=== PATIENT | female | born 1945 | race Caucasian/White ===

== ENCOUNTER 2018-11-28 14:51 | Inpatient (IN) | payer MEDICARE, MEDICAID ==
[~2018-11-28] VITALS: Ht 152.4 cm; Wt 40.1 kg
[~2018-11-28 14:51] MED LIST: BACITAB PO; FLUO20CA8 PO; GEOD60CA PO; MIRA3350 PO; MOM30SS PO; PANT40TA3 PO; PERCOCET PO; PROZ20CA11 PO; SENO8.6T5 PO; SIMV20TA2 PO; TRAZ-163 PO; XARE10TA PO; XARE15TA PO; ZIPR60CA11 PO; desyrel PO
--- NOTE | 2018-11-28 15:11 | HPEPDOC ---
[facility] Medical History & Physical Date of Admission November 28, 2018 History and Physical Vascular Surgery Dr Mena. PCP Yumiko Redding NP. CC: LLE hematoma. HPI: 73yoF with a past medical history significant for chronic venous insufficiency who returns today for FU of LLE hematoma s/p mechanical fall approximately 2 weeks ago and her walker had fallen on top of her. The pt was seen in the office by Dr Mena 11/23/18 and returns today for a FU appt. The pt reports some bleeding from the hematoma, size has been unchanged, some of thin overlying skin has turned dark in color. Some of the overlying skin on the hematoma was noted to be necrotic in the office today, therefore the pt is being admitted for hematoma evacuation and wound debridement in AM. Pt states she had a milkshake at noon today. Denies any fevers, chills, weakness, fatigue, REN, CP, SOB, cough, palpitations, abdominal pain, N/V/D or changes in bowel or bladder habits. PMHx: chronic venous insufficiency unsteady gait. Walker HTN depression anxiety Bipolar disorder GERD HLD H/O PE 2012/ S/P IVC filter, on AC-Xarelto PSHX: cholecystectomy Rt hip fracture/ORIF 2013. SOCHX: Tobacco use: denies ETOH: denies Illicit Drugs: Denies FAMHX: DM, oral Ca ROS: As noted in HPI, otherwise 11pt ROS of systems reviewed and unremarkable. PE: GEN: 73yoF, appears stated age. No acute distress. Alert and oriented x 3. HEENT: Normocephalic, atraumatic. No facial asymmetry. Moist mucous membranes. CHEST: Regular rate and rhythm, +S1, +S2 LUNGS: Clear to auscultation bilaterally. No wheezes, rales, or rhonchi. Breathing appears symmetric and easy. ABD: Round, soft, non-tender, non-distended. +Bowel sounds throughout. No rebound or guarding. EXT: Chronic venous stasis changes B/L, Approximate 5-6 cm diameter hematoma is noted LLE with some bloody drainage, some of the overlying skin appears dark and necrotic. NEURO: Alert and oriented x 3. No focal deficits appreciated. A&P: 73yoF with a past medical history significant for chronic venous insufficiency who returns today for FU of LLE hematoma s/p mechanical fall approximately 2 weeks ago and her walker had fallen on top of her. The pt was seen in the office by Dr Mena 11/23/18 and returns today for a FU appt. The pt reports some bleeding from the hematoma, size dubose been unchanged, some of thin overlying skin has turned dark in color. Some of the overlying skin on the hematoma was noted to be necrotic in the office today, therefore the pt is being admitted for hematoma evacuation and wound debridement in AM. 1. LLE hematoma/Wound LLE IV Zosyn Q6hr. Admission labs pending. Plan for admission for hematoma evacuation and wound debridement as per Dr Mena 11/29/18. Pt is in agreement. Admission arranged. 2. Chronic venous stasis changes. Complicates care and wound healing. 3. H/O PE/IVC Filter 2012. Pt is on Xarelto Xarelto will be continued. 4. Mechanical fall. pt uses walker, Fall precautions. 5. HLD. Continue statin. 6. Bipolar disorder. Continue outpt regimen. 7. HTN. Continue outpt regimen. 8. GERD. PPI. DVT prophylaxis. Pt is on Xarelto. MED REC PENDING at this time. Vital Signs Admission VS pending. Laboratory Data Labs 24H admission labs pending. Home Medications Scheduled Fluoxetine HCl (Prozac) 20 Mg Cap, 20 MG PO DAILY Furosemide (Furosemide) 40 Mg Tablet, 40 MG PO BID Pantoprazole Sodium (Pantoprazole Sodium) 40 Mg Tab, 40 MG PO DAILY Pravastatin Sodium (Pravastatin Sodium) 40 Mg Tablet, 40 MG PO QHS Rivaroxaban (Xarelto) 15 Mg Tablet, 15 MG PO DAILY WHEN PATIENT HURT HER LEG ABOUT 1 WEEK AGO, HER DOCTOR TOLD HER TO STOP TAKING XARELTO UNTIL HE DIRECTED HER TO TAKE IT AGAIN. Trazodone HCl (Trazodone HCl) 100 Mg Tab, 100 MG PO QHS Ziprasidone HCl (Geodon) 40 Mg Capsule, 40 MG PO BID Scheduled PRN Acetaminophen (Acetaminophen) 325 Mg Tablet, 650 MG PO Q6H PRN for PAIN Allergies Coded Allergies: No Known Allergies (Verified , 12/01/04) A-FIB/CHADSVASC A-FIB History Current/History of A-Fib/PAF?: No Peggy Sultana November 28, 2018 15:11
[2018-11-28] MEDS ORDERED: PIPERACILLIN/TAZOBACTAM SOD 3.375 GM in D5W MINI-BAG PLUS 50 ML IV SCH (15:15)
[2018-11-28 16:37] LABS: BASO # 0.1 10^3/uL (0.0-0.2); BASO % 0.5 % (0.0-1.0); EOS # 0.2 10^3/uL (0.0-0.50); EOS % 1.8 % (0.0-3.0); HEMOGLOBIN 13.7 g/dl (12.0-15.5); LYMPH # 1.2 10^3/uL (1.5-4.5); LYMPH % 11.2 % (24.0-44.0); MEAN CORPUSCULAR HEMOGLOBIN 26.8 pg (27.0-33.0); MEAN CORPUSCULAR HGB CONC 31.9 g/dl (32.0-36.5); MONO # 0.8 10^3/uL (0.0-0.8); MONO % 7.5 % (0.0-5.0); NEUTROPHILS # 8.5 10^3/uL (1.8-7.7); NEUTROPHILS % 78.4 % (36.0-66.0); PLATELET COUNT, AUTOMATED 321 10^3/uL (150-450); RED BLOOD COUNT 5.12 10^6/uL (4.00-5.40); WHITE BLOOD COUNT 10.9 10^3/uL (4.0-10.0)
[2018-11-28 16:55] LABS: BLOOD UREA NITROGEN 13 MG/DL (7-18); CALCIUM LEVEL 9.2 MG/DL (8.8-10.2); CARBON DIOXIDE LEVEL 27 MEQ/L (21-32); CHLORIDE LEVEL 104 MEQ/L (98-107); CREATININE FOR GFR 0.81 MG/DL (0.55-1.30); GLOMERULAR FILTRATION RATE > 60.0 (>39); GLUCOSE, FASTING 107 MG/DL (70-100); POTASSIUM SERUM 4.8 MEQ/L (3.5-5.1); SODIUM LEVEL 138 MEQ/L (136-145)
--- NOTE | 2018-11-28 18:52 | ECGEPIP ---
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
[2018-11-28] MEDS ORDERED: GEOD40CA13 PO (20:48)
[2018-11-28] MEDS ORDERED: XARE15TA PO (20:48)
[2018-11-28] MEDS ORDERED: PRAV40TA2 PO (20:49)
[2018-11-28] MEDS ORDERED: FURO40TA2 PO (20:49)
[2018-11-28] MEDS ORDERED: ACET-908 PO (20:49)
[2018-11-28 22:00] VITALS: BP 125/56
[2018-11-28] MEDS: PIPERACILLIN/TAZOBACTAM SOD 2.25 GM in D5W MINI-BAG PLUS 50 ML IV SCH (22:11)
[2018-11-29] MEDS: PIPERACILLIN/TAZOBACTAM SOD 2.25 GM in D5W MINI-BAG PLUS 50 ML IV SCH ×4 (03:18→20:11)
[2018-11-29 06:00] VITALS: BP 118/56
[2018-11-29 06:28] LABS: HEMATOCRIT 40.5 % (36.0-47.0); HEMOGLOBIN 12.6 g/dl (12.0-15.5); MEAN CORPUSCULAR HEMOGLOBIN 26.6 pg (27.0-33.0); MEAN CORPUSCULAR HGB CONC 31.1 g/dl (32.0-36.5); MEAN CORPUSCULAR VOLUME 85.6 fl (80.0-96.0); PLATELET COUNT, AUTOMATED 289 10^3/uL (150-450); RED BLOOD COUNT 4.73 10^6/uL (4.00-5.40); WHITE BLOOD COUNT 9.9 10^3/uL (4.0-10.0)
[2018-11-29 06:49] LABS: BLOOD UREA NITROGEN 10 MG/DL (7-18); CALCIUM LEVEL 8.8 MG/DL (8.8-10.2); CARBON DIOXIDE LEVEL 27 MEQ/L (21-32); CHLORIDE LEVEL 105 MEQ/L (98-107); CREATININE FOR GFR 0.73 MG/DL (0.55-1.30); GLOMERULAR FILTRATION RATE > 60.0 (>39); GLUCOSE, FASTING 101 MG/DL (70-100); SODIUM LEVEL 137 MEQ/L (136-145)
[2018-11-29] MEDS ORDERED: PROPOFOL 200 MG/20 ML VIAL As Ordered ONE (11:11)
[2018-11-29] MEDS ORDERED: MIDAZOLAM INJ 2 MG/2 ML VIAL (J2250) As Ordered ONE (11:11)
[2018-11-29] MEDS ORDERED: fentaNYL 100 MCG/2 ML INJECTION (J3010) As Ordered ONE (11:11)
[2018-11-29] MEDS ORDERED: ACETAMINOPHEN TAB 650MG DOSE (2X325MG) PO PRN (12:15)
[2018-11-29 12:30] VITALS: BP 124/57
[2018-11-29] MEDS: FUROSEMIDE 40 MG TAB PO SCH ×2 (12:39→20:12)
[2018-11-29] MEDS: PANTOPRAZOLE 40MG TAB (PROTONIX) PO SCH (12:39)
[2018-11-29] MEDS: FLUoxetine 20 MG CAP PO SCH (12:39)
[2018-11-29 13:00] VITALS: BP 112/53
[2018-11-29 14:00] VITALS: BP 124/60
[2018-11-29] MEDS: ZIPRASIDONE 20MG CAPSULE (GEODON) PO SCH ×2 (14:26→20:13)
[2018-11-29] MEDS ORDERED: RIVAROXABAN 15 MG TAB (XARELTO) PO SCH (18:00)
[2018-11-29] MEDS ORDERED: PRAVASTATIN 20 MG TAB PO SCH (21:00)
[2018-11-29 22:00] VITALS: BP 127/59
[2018-11-30] MEDS: PIPERACILLIN/TAZOBACTAM SOD 2.25 GM in D5W MINI-BAG PLUS 50 ML IV SCH ×2 (03:15→09:48)
[2018-11-30 06:00] VITALS: BP 120/56
[2018-11-30] MEDS ORDERED: AUGM875T28 PO (09:07)
--- NOTE | 2018-11-30 09:46 | DS.PDOC ---
Discharge Summary General Date of Admission November 28, 2018 at 15:27 Date of Discharge 11/30/18 Discharge Summary PROCEDURES PERFORMED DURING STAY: hematoma evacuation LLE and wound debridement as per Dr Mena 11/29/18. ADMITTING DIAGNOSES: Hematoma LLE. unsteady gait. Walker HTN depression anxiety Bipolar disorder GERD HLD H/O PE 2012/ S/P IVC filter, on AC-Xarelto DISCHARGE DIAGNOSES: hematoma LLE S/P hematoma evacuation and wound debridement. unsteady gait. Walker HTN depression anxiety Bipolar disorder GERD HLD H/O PE 2012/ S/P IVC filter, on AC-Xarelto HISTORY OF PRESENT ILLNESS: 73yoF with a past medical history significant for chronic venous insufficiency who returns today for FU of LLE hematoma s/p mechanical fall approximately 2 weeks ago and her walker had fallen on top of her. The pt denies any dizziness, weakness, presyncopal or syncopal symptoms and states she tripped and the walker fell on her leg. She denies any difficulty ambulating and the pt had walked into office appt by herself. The pt reports some bleeding from the hematoma, size has been unchanged, some of thin overlying skin has turned dark in color. Some of the overlying skin on the hematoma was noted to be necrotic in the office today, therefore the pt is being admitted for hematoma evacuation and wound debridement in AM. HOSPITAL COURSE: The pt was admitted and placed on IV Zosyn. The pt is S/P hematoma evacuation and wound debridement 11/29/[address] Mena. Plan for d/c today with wound care and referral to Dr Renee for wound management. This AM the pt states she has been up OOB to chair and ambulating in room to BR on her own with her walker. Denies any concerns. States she has family at home which will help her change her dressing. DISCHARGE MEDICATIONS: Please see below. ALLERGIES: Please see below. PHYSICAL EXAMINATION ON DISCHARGE: VITAL SIGNS: Please see below. GEN: 73yoF, appears stated age. No acute distress. Alert and oriented x 3. HEENT: Normocephalic, atraumatic. No facial asymmetry. Moist mucous membranes. CHEST: Regular rate and rhythm, +S1, +S2 LUNGS: Clear to auscultation bilaterally. No wheezes, rales, or rhonchi. Breathing appears symmetric and easy. ABD: Round, soft, non-tender, non-distended. +Bowel sounds throughout. No rebound or guarding. EXT: Chronic venous stasis changes B/L, S/P hematoma evacuation and wound debridement LLE with some bloody drainage noted on dressing when removed this AM, foam dressing applied. NEURO: Alert and oriented x 3. No focal deficits appreciated. LABORATORY DATA: Please see below. ACTIVITY: As tolerated. fall precautions. DIET: As tolerated DISCHARGE PLAN: D/C home as long as cleared per PT. Vashe cleanser daily and apply foam dressing daily. Referral to Dr Renee for contd wound care. FU with Dr Mena 1 week. Augmentin 875 mg po BID x 7 days. ITEMS TO FOLLOWUP ON ON OUTPATIENT: 1. Wound mgmt with Dr Renee. DISCHARGE CONDITION: Stable. TIME SPENT ON DISCHARGE: Greater than 30 minutes. Vital Signs/I&Os Vital Signs Date Time Temp Pulse Resp B/P (MAP) Pulse Ox O2 Delivery O2 Flow Rate FiO2 11/30/18 06:00 97.7 87 17 120/56 (77) 92 11/29/18 11:32 2 I&O- Last 24 Hours up to 6 AM 11/30/18 06:00 Intake Total 432 ml Output Total 630 ml Balance -198 ml Laboratory Data Labs 24H Item Value Date Time White Blood Count 9.9 10^3/uL 11/29/18 0603 Red Blood Count 4.73 10^6/uL 11/29/18 0603 Hemoglobin 12.6 g/dl 11/29/18 0603 Hematocrit 40.5 % 11/29/18 0603 Mean Corpuscular Volume 85.6 fl 11/29/18 0603 Mean Corpuscular Hemoglobin 26.6 pg L 11/29/18 0603 Mean Corpuscular Hemoglobin Concent 31.1 g/dl L 11/29/18 0603 Red Cell Distribution Width 13.9 % 11/29/18 0603 Platelet Count 289 10^3/uL 11/29/18 0603 Sodium Level 137 MEQ/L 11/29/18 0603 Potassium Level 4.0 MEQ/L 11/29/18 0603 Chloride Level 105 MEQ/L 11/29/18 0603 Carbon Dioxide Level 27 MEQ/L 11/29/18 0603 Anion Gap 5 MEQ/L L 11/29/18 0603 Blood Urea Nitrogen 10 MG/DL 5/14/19 0603 Creatinine 0.73 MG/DL 11/29/18602 Glomerular Filtration Rate > 60.0 11/29/18602 Fasting Glucose 101 MG/DL H 11/29/18602 Calcium Level 8.8 MG/DL 11/29/18602 Discharge Medications Scheduled Amoxicillin/Potassium Clav (Augmentin 875-125 Tablet) 1 Each Tablet, 1 TAB PO BID Fluoxetine HCl (Prozac) 20 Mg Cap, 20 MG PO DAILY, (Reported) Furosemide (Furosemide) 40 Mg Tablet, 40 MG PO BID, (Reported) Pantoprazole Sodium (Pantoprazole Sodium) 40 Mg Tab, 40 MG PO DAILY, (Reported) Pravastatin Sodium (Pravastatin Sodium) 40 Mg Tablet, 40 MG PO QHS, (Reported) Rivaroxaban (Xarelto) 15 Mg Tablet, 15 MG PO DAILY, (Reported) WHEN PATIENT HURT HER LEG ABOUT 1 WEEK AGO, HER DOCTOR TOLD HER TO STOP TAKING XARELTO UNTIL HE DIRECTED HER TO TAKE IT AGAIN. Trazodone HCl (Trazodone HCl) 100 Mg Tab, 100 MG PO QHS, (Reported) Ziprasidone HCl (Geodon) 40 Mg Capsule, 40 MG PO BID, (Reported) Scheduled PRN Acetaminophen (Acetaminophen) 325 Mg Tablet, 650 MG PO Q6H PRN for PAIN, (Reported) Allergies Coded Allergies: No Known Allergies (Verified , 12/01/04) Peggy Sultana November 30, 2018 09:46
[2018-11-30] MEDS: ZIPRASIDONE 20MG CAPSULE (GEODON) PO SCH (09:47)
[2018-11-30] MEDS: PANTOPRAZOLE 40MG TAB (PROTONIX) PO SCH (09:47)
[2018-11-30] MEDS: FLUoxetine 20 MG CAP PO SCH (09:48)
[2018-11-30] MEDS: FUROSEMIDE 40 MG TAB PO SCH (09:48)
--- NOTE | 2018-12-23 12:24 | RO ---
DATE OF PROCEDURE: 11/29/2018 PREOPERATIVE DIAGNOSIS: Left calf hematoma, left calf skin necrosis. POSTOPERATIVE DIAGNOSIS: Left calf hematoma, left calf skin necrosis. PROCEDURE: Excisional debridement of left calf necrotic skin, evacuation of hematoma and excisional debridement of nonviable subcutaneous tissue. Wound size measures 20 cm in width x 30 cm in length x 1 mm in depth. ATTENDING SURGEON: Dr. Kolton Mena CLOTH EXAMINER: None. INDICATIONS: The patient is a 73-year-old female on anticoagulation who had traumatic injury to her left calf and developed a hematoma which is now creating necrosis of the overlying skin. The patient will undergo resection of the nonviable skin and evacuation of hematoma. ANESTHESIA: MAC. ESTIMATED BLOOD LOSS: 5 mL. IV FLUIDS: 100 mL. SPECIMEN: None. COMPLICATIONS: None. DRAINS: None. IMPLANTS: None. DESCRIPTION OF PROCEDURE: The patient was taken to the operating room, placed supine on the operating room table and then prepped and draped in a standard surgical fashion. The hematoma was evacuated from the left calf after the nonviable skin was excised using a scalpel and tooth pickups. There was some nonviable subcutaneous tissue which was also sharply debrided with the wound measuring 20 cm x 30 cm x 1 mm in depth at completion of the debridement. Dressings were then applied. The patient tolerated the procedure well. All instrument, sponge and needle counts were correct at the end of the case. There were no complications. Dr. Mena was present for and directed the entire case. The patient was transferred to the recovery room in stable condition.
== END 2018-11-30 12:37 | disposition home or self-care (01) | DRG 572 ==
LOC: M MSPAV 15:27
PROVIDERS: ADMIT Surgery Vascular Surgery; ATTEND Surgery Vascular Surgery
PROC: 0JBP0ZZ Excision of Left Lower Leg Subcutaneous Tissue and Fascia, Open Approach (ICD-10-PCS; principal; 2018-11-29 15:13)
DX: S80.12XA Contusion of left lower leg, initial encounter (principal); I87.2 Venous insufficiency (chronic) (peripheral); R26.89 Other abnormalities of gait and mobility; K21.9 Gastro-esophageal reflux disease without esophagitis; F31.9 Bipolar disorder, unspecified; F41.9 Anxiety disorder, unspecified; I10 Essential (primary) hypertension; Z79.01 Long term (current) use of anticoagulants; Z79.899 Other long term (current) drug therapy; W18.30XA Fall on same level, unspecified, initial encounter; Y92.009 Unspecified place in unspecified non-institutional (private) residence as the place of occurrence of the external cause

== ENCOUNTER → 2019-02-21 | Outpatient (CLI) | payer MEDICARE, MEDICAID ==
[~2019-02-21] MED LIST changes: +ACET-908 PO; +AUGM875T28 PO; +FURO40TA2 PO; +GEOD40CA13 PO; +PRAV40TA2 PO
--- NOTE | 2019-02-21 15:29 | REP ---
BILATERAL LOWER EXTREMITY DUPLEX DOPPLER ARTERIAL ULTRASOUND: Real-time ultrasound evaluation and duplex Doppler interrogation of the bilateral lower extremity arterial systems is performed. 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 There is severe stenosis of the right common femoral artery just distal to that in the proximal right superficial femoral artery. Severe stenosis is seen of the distal left common femoral artery and profunda artery. There is occlusion of the proximal and mid left superficial femoral artery with reconstitution of the distal superficial femoral artery. Monophasic waveforms are seen diffusely bilaterally. 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 Severe stenosis distal right common femoral artery just distal to the aneurysm as well as right profunda and proximal SFA. Severe stenosis distal left common femoral artery and profunda. Occlusion proximal left SFA with reconstitution of the distal left SFA. Electronically Signed by Fernando Rocha MD 02/22/2019 10:52 A
== END ==
LOC: M RAD 12:31
PROVIDERS: ATTEND Physician Assistant
DX: I99.9 Unspecified disorder of circulatory system (principal); I87.393 Chronic venous hypertension (idiopathic) with other complications of bilateral lower extremity; I72.4 Aneurysm of artery of lower extremity

== ENCOUNTER 2019-05-17 15:04 | Inpatient (IN) | payer MEDICARE, MEDICAID ==
[~2019-05-17] VITALS: Ht 152.4 cm; Wt 43.7 kg
[2019-05-17 16:47] VITALS: BP 137/51
[2019-05-17] MEDS ORDERED: IPRATROPIUM 0.5MG/ALBUTEROL 2.5MG INH SOL UD 3ML (DUONEB)(J7620) NEB PRN (17:30)
[2019-05-17] MEDS ORDERED: MAALOX 30 ML SUSP *UDC PO PRN (17:30)
[2019-05-17] MEDS ORDERED: MOM 30ML SUSPENSION UDC PO PRN (17:30)
[2019-05-17] MEDS ORDERED: SLF 3 ML SYR IV PRN (17:45)
--- NOTE | 2019-05-17 17:48 | HPEPDOC ---
General Date of Admission May 17, 2019 at 16:48 Date of Service: May 17, 2019 Chief Complaint The patient is a 73-year-old female admitted with a reason for visit of Pneumonia. History of Present Illness 73 years old white female with past medical history of hypertension, depression, anxiety, bipolar disorder, GERD, HLD, history of PE status post IVC filter on Xarelto was admitted to [facility] with the diagnosis of pneumonia and COPD since 05/14/2019. She was treated with Zithromax and there for IV antibiotics for pneumonia, but today was transferred to [facility] for advanced care for her COPD and pneumonia. Patient is a poor historian. Offers no complaints is not sure why she is here. History was obtained from the accepting physician and from medical records brought from [facility] with patient. Home Medications Scheduled Amoxicillin/Potassium Clav (Augmentin 875-125 Tablet) 1 Each Tablet, 1 TAB PO BID Fluoxetine HCl (Prozac) 20 Mg Cap, 20 MG PO DAILY, (Reported) Furosemide (Furosemide) 40 Mg Tablet, 40 MG PO BID, (Reported) Pantoprazole Sodium (Pantoprazole Sodium) 40 Mg Tab, 40 MG PO DAILY, (Reported) Pravastatin Sodium (Pravastatin Sodium) 40 Mg Tablet, 40 MG PO QHS, (Reported) Rivaroxaban (Xarelto) 15 Mg Tablet, 15 MG PO DAILY, (Reported) WHEN PATIENT HURT HER LEG ABOUT 1 WEEK AGO, HER DOCTOR TOLD HER TO STOP TAKING XARELTO UNTIL HE DIRECTED HER TO TAKE IT AGAIN. Trazodone HCl (Trazodone HCl) 100 Mg Tab, 100 MG PO QHS, (Reported) Ziprasidone HCl (Geodon) 40 Mg Capsule, 40 MG PO BID, (Reported) Scheduled PRN Acetaminophen (Acetaminophen) 325 Mg Tablet, 650 MG PO Q6H PRN for PAIN, (Reported) Allergies Coded Allergies: No Known Allergies (Verified , 12/01/04) Past Medical History Medical History Hematoma of left lower extremity, status post evacuation and wound debridement unsteady gait, hypertension, depression, anxiety, bipolar disorder, GERD, hyperlipidemia, history of PE with IVC filter in and on anticoagulation Surgical History history of hematoma, left lower extremity, status post evacuation and wound debridement in the past History of IVC placement in the past Family History Significant Family History: No pertinent family hx Social History * Smoker: former Smoker Alcohol: Denies Drugs: denies A-FIB/CHADSVASC A-FIB History Current/History of A-Fib/PAF?: No Current PO Anticoag Therapy: Yes Review of Systems Constitutional: Denies: Chills, Fever, Malaise, Night Sweats, Weakness, Fatigue, Weight Loss, Lethargy, Other Eyes: Denies: Pain, Vision change, Conjunctivae inflammation, Eyelid inflammation, Redness, Other ENT: Denies: Head Aches, Ear Pain, Dysphagia, Sinus Congestion, Post Nasal Drip, Sore Throat, Epistaxis, Other Symptoms Pulmonary: Reports: Dyspnea Cardiovascular: Denies: Chest Pain, Palpitations, Orthopnea, Paroxysmal Noc. Dyspnea, Edema, Lt Headedness, Other Symptoms Gastrointestinal: Denies: Nausea, Vomiting, Abdominal Pain, Diarrhea, Constipation, Melena, Hematochezia, Other Symptoms Genitourinary: Denies: Dysuria, Frequency, Incontinence, Hematuria, Retention, Other Symptoms Hematologic: Denies: Bruising, Bleeding Excessively, Petecchia, Purpura, Enlarged Lymph Nodes, Other Hematologic Endocrine: Denies: Polydipsia, Polyphagia, Polyuria, Heat Intolerance, Cold Intolerance, Other Endocrine Sx Musculoskeletal: Denies: Neck Pain, Back Pain, Shoulder Pain, Arm Pain, Hand Pain, Leg Pain, Foot Pain, Joint Pain, Muscle Pain, Spasms, Other Symptoms Neurological: Denies: Weakness, Numbness, Incoordination, Change in speech, Confusion, Seizures, Other Symptoms Psych: Denies: Mood Normal, Anxiety, Depression, Memory Issues, Thoughts of Self Harm, Anger, Thoughts of Harming Other, Other Psych Physical Examination General Exam: Positive: Alert, Cooperative Eye Exam: Positive: PERRLA, Conjunctiva & lids normal ENT Exam: Positive: Atraumatic Chest Exam: Positive: Other (diminished breath sounds bilaterally with crackles and rhonchi bilaterally) Heart Exam: Positive: Rate Normal, Normal S1, Normal S2 Abdomen Exam: Positive: Normal bowel sounds, Soft Extremity Exam: Positive: Other (bipedal edema) Skin Exam: Positive: Nl turgor and temperature Neuro Exam: Positive: Strength at 5/5 X4 ext, Sensation Intact Psych Exam: Positive: Mood NL Vital Signs Vital Signs Date Time Temp Pulse Resp B/P (MAP) Pulse Ox O2 Delivery O2 Flow Rate FiO2 05/17/19 16:47 98.1 80 18 137/51 (79) 92 Venturi Mask 15.0 50 Problems (1) COPD (chronic obstructive pulmonary disease) Status: Acute Problem Text: 73 years old white lady with past medical history of GERD, hype rlipidemia, anxiety, depression, hypertension, unsteady gait, COPD, was admitted to [facility] and was diagnosed with pneumonia and COPD and was treated with Zithromax and. Patient had a CT of the chest done at [place] on 05/15, which was consistent with new moderate patchy nodular infiltrate in the right lower lobe with stable mild right upper lobe infiltrate. She also had a chest x- ray done on 05/15, which showed no significant chest right upper and lower lobe infiltrates and COPD. Patient was transferred to [facility] as they were unable to take care of patient at [facility], and is per transfer, she might require pulmonary consultation On examination, patient is comfortable, cooperative, in no respiratory or cardiac distress Will admit patient to PCU with the telemetry monitoring Start Vanco and Zosyn as broad-spectrum coverage as patient has been admitted to [facility] for a few days DuoNeb every 6 hours and every 2 hours when necessary Solu-Medrol 40 mg IV every 8 hours Oxygen supplementation to keep pulse ox more than 88% Blood gas has been ordered Chest x-ray portable has been ordered CBC, CMP pro calcitonin. BNP and troponin levels have been ordered Echocardiogram also has been ordered secondary to patient's bipedal edema Patient is already on Xarelto also DVT. No DVT prophylaxis is needed Activity as tolerated Diet 2 g sodium Of the changes and management pending patient's basic blood and radiological work (2) Pneumonia Status: Acute Problem Text: Pneumoniae, as per records from [facility] Broad-spectrum antibiotics such as Zosyn and vancomycin Oxygen supplementation Further, as per pending diagnostic workup (3) History of pulmonary embolism Status: Chronic Problem Text: Continue Xarelto , ABG has been ordered (4) Depression Status: Chronic Problem Text: Continue home meds (5) Edema Problem Text: Bipedal edema was noticed on exam Patient is on by mouth Lasix at [place] Will give one dose of Lasix 40 mg IV push Monitor intake and output Echocardiogram to assess cardiac function Plan / VTE VTE Prophylaxis Ordered?: Yes DEIDRA STEVENSON MD May 17, 2019 17:48
[2019-05-17 17:57] LABS: HEMATOCRIT 26.9 % (36.0-47.0); HEMOGLOBIN 8.4 g/dl (12.0-15.5); MEAN CORPUSCULAR HEMOGLOBIN 27.8 pg (27.0-33.0); MEAN CORPUSCULAR HGB CONC 31.2 g/dl (32.0-36.5); MEAN CORPUSCULAR VOLUME 89.1 fl (80.0-96.0); PLATELET COUNT, AUTOMATED 135 10^3/uL (150-450); RED BLOOD COUNT 3.02 10^6/uL (4.00-5.40); WHITE BLOOD COUNT 19.8 10^3/uL (4.0-10.0)
[2019-05-17] MEDS ORDERED: FUROSEMIDE 40 MG/4 ML VIAL (J1940) IV ONE ×2 (18:00→22:00)
[2019-05-17 18:13] LABS: INR 1.16; PROTHROMBIN TIME 14.5 SECONDS (11.8-14.0)
[2019-05-17 18:19] LABS: ABG pH (ARTERIAL) 7.544 UNITS (7.350-7.450)
[2019-05-17 18:20] LABS: ABG BASE EXCESS 4.9 (-2.0-2.0); ABG HCO3 27.5 MEQ/L (22.0-26.0); ABG O2 SATURATION 86.7 % (95.0-99.0); ABG PARTIAL PRESSURE CO2 32.6 mmHg (35.0-45.0); ABG PARTIAL PRESSURE O2 48.3 mmHg (75.0-100.0); ABG STANDARD HCO3 28.7 MEQ/L (22.0-26.0); ABG TOTAL CO2 28.5 MEQ/L (23.0-31.0)
[2019-05-17 18:31] LABS: ALBUMIN 1.8 GM/DL (3.2-5.2); ALT/SGPT 27 U/L (12-78); BILIRUBIN,TOTAL 0.3 MG/DL (0.2-1.0); BLOOD UREA NITROGEN 23 MG/DL (7-18); CALCIUM LEVEL 7.5 MG/DL (8.8-10.2); CARBON DIOXIDE LEVEL 30 MEQ/L (21-32); CHLORIDE LEVEL 107 MEQ/L (98-107); CREATININE FOR GFR 0.63 MG/DL (0.55-1.30); GLOMERULAR FILTRATION RATE > 60.0 (>39); GLUCOSE, FASTING 116 MG/DL (70-100); NT-PRO BNP 2012 PG/ML (<125); POTASSIUM SERUM 3.2 MEQ/L (3.5-5.1); SODIUM LEVEL 145 MEQ/L (136-145); TOTAL PROTEIN 4.5 GM/DL (6.4-8.2); TROPONIN I 0.05 NG/ML (< 0.10)
[2019-05-17] MEDS ORDERED: ISOVUE-370 76% 100ML VIAL (Q9967) As Ordered ONE (18:45)
[2019-05-17] MEDS ORDERED: DILT180C78 PO (19:13)
[2019-05-17] MEDS ORDERED: METH125VL IM (19:13)
[2019-05-17] MEDS ORDERED: BUDE0.5S6 NEB (19:13)
[2019-05-17] MEDS ORDERED: ALBU83IN INH (19:15)
[2019-05-17] MEDS ORDERED: [UNRECOGNIZED DRUG - REMARK] (19:18)
--- NOTE | 2019-05-17 19:26 | REP ---
Sitting AP chest x-ray: Single view. History: Pneumonia. Comparison chest x-ray is from March 18, 2014. Findings: There is dense consolidation in the right lower lobe and to a lesser extent, in the upper lobe distribution consistent with pneumonia. There is biapical pleuroparenchymal fibrosis. Some interstitial fibrosis is visible in the left base. There are surgical clips in the soft tissues of the neck on the left. There is old post-traumatic deformity in the proximal humerus on the right. A vena cava filter is noted at the bottom edge of the field of view in the upper abdomen. Heart is not enlarged. Impression: Extensive consolidation in the right lower lobe and right upper lobe consistent with pneumonia. Mild interstitial fibrosis pattern and biapical pleuroparenchymal fibrosis pattern. Electronically Signed by Rigoberto Adams MD 05/17/2019 07:17 P
--- NOTE | 2019-05-17 19:44 | REP ---
CT chest with IV contrast: History: Pneumonia. CT contrast dose: 75 ml of intravenous Isovue 370. Comparison chest CT study March 18, 2014. CT findings: There are scattered areas of pleural plaquing with some which show calcification consistent with previous asbestos exposure. These areas are unchanged. There are extensive areas of dense nearly confluent consolidation in the right lower lobe with smaller areas in the right middle lobe and right upper lobe consistent with pneumonia. These areas are distributed in the dependent portions of the right lung in supine patient raising question of aspiration. There is a small quantity of right pleural fluid and tiny amount of left pleural fluid is suspected. There are small areas of tree in bud opacity in the left lower lobe which may reflect early pneumonia in the left lower lobe as well. There is good opacification of the pulmonary arterial tree and there is no CT evidence of pulmonary embolus. Vascular calcification is noted. No pericardial effusion is seen. No adrenal lesion is observed. Visualized upper abdominal structures are unremarkable. The tip of patent inferior vena cava filter is seen in place at the bottom edge of the imaging field of view. Impression: Extensive pneumonia in the dependent portions of the right lung, upper, mid, and lower lobes. Question aspiration pneumonia. Tiny right pleural effusion. Question early infiltrate in the left lower lobe with peribronchovascular nodularity. Calcific pleural plaquing. Electronically Signed by Rigoberto Adams MD 05/18/2019 08:34 A
[2019-05-17] MEDS: IPRATROPIUM 0.5MG/ALBUTEROL 2.5MG INH SOL UD 3ML (DUONEB)(J7620) NEB SCH (19:46)
[2019-05-17 19:48] VITALS: O2SAT 98
[2019-05-17] MEDS: PIPERACILLIN/TAZOBACTAM SOD 3.375 GM in D5W MINI-BAG PLUS 50 ML IV SCH ×2 (19:50→23:05)
[2019-05-17] MEDS: RIVAROXABAN 15 MG TAB (XARELTO) PO SCH (19:50)
[2019-05-17 20:00] VITALS: BP 110/62
[2019-05-17] MEDS: ZIPRASIDONE 20MG CAPSULE (GEODON) PO SCH (21:02)
[2019-05-17] MEDS: methylPREDNISolone INJ 40 MG/1 ML VIAL (J2920) IV SCH (21:02)
[2019-05-17] MEDS: traZODone 100 MG TAB PO SCH (21:02)
[2019-05-17] MEDS: DOCUSATE SODIUM 100 MG CAP PO SCH (21:02)
[2019-05-17] MEDS: SLF 3 ML SYR IV SCH (21:03)
[2019-05-17] MEDS ORDERED: POTASSIUM CHLORIDE 10 MEQ SR TABLET PO ONE ×2 (22:00→23:45)
[2019-05-17 22:14] LABS: MAGNESIUM LEVEL 2.1 MG/DL (1.8-2.4)
[2019-05-17] MEDS ORDERED: MAG SULF 1GM/100ML (MAG RUN) 1 GM in IV 1 EA IV ONE (22:15)
[2019-05-17 22:30] VITALS: O2SAT 90
[2019-05-17 23:14] LABS: ABG BASE EXCESS 3.6 (-2.0-2.0); ABG HCO3 25.8 MEQ/L (22.0-26.0); ABG O2 SATURATION 87.1 % (95.0-99.0); ABG PARTIAL PRESSURE CO2 29.9 mmHg (35.0-45.0); ABG PARTIAL PRESSURE O2 50.6 mmHg (75.0-100.0); ABG STANDARD HCO3 27.5 MEQ/L (22.0-26.0); ABG TOTAL CO2 26.7 MEQ/L (23.0-31.0); ABG pH (ARTERIAL) 7.553 UNITS (7.350-7.450)
--- NOTE | 2019-05-17 23:16 | REPVR ---
PROCEDURE INFORMATION: Exam: XR Chest, 1 View Exam date and time: 05/17/2019 11:05 PM Clinical history: 73 years old, female; Condition or disease; Other: Pneumonia TECHNIQUE: Imaging protocol: XR of the chest Views: 1 view. COMPARISON: CR PORTABLE CHEST X-RAY 05/17/2019 7:08 PM FINDINGS: Lungs: Redemonstration of a right lower lobe airspace infiltrate. Remaining lungs demonstrate increased interstitial markings. Bilateral apical pleural-parenchymal scarring. Pleural space: Unremarkable. No pleural effusion. No pneumothorax. Heart/Mediastinum: Heart/Mediastinum/soft tissues: Unremarkable. No cardiomegaly. Multiple surgical clips in the left neck again demonstrated. Bones/joints: Deformity of the right shoulder consistent with a fracture, age-indeterminate. Osteoporosis. Otherwise unremarkable. IMPRESSION: Redemonstration of a right lower lobe infiltrate. Electronically signed by: Clem Berry On 05/17/2019 23:16:14 PM
[2019-05-17 23:33] LABS: BLOOD UREA NITROGEN 22 MG/DL (7-18); CALCIUM LEVEL 7.3 MG/DL (8.8-10.2); CARBON DIOXIDE LEVEL 29 MEQ/L (21-32); CHLORIDE LEVEL 102 MEQ/L (98-107); CREATININE FOR GFR 0.72 MG/DL (0.55-1.30); GLOMERULAR FILTRATION RATE > 60.0 (>39); GLUCOSE, FASTING 207 MG/DL (70-100); POTASSIUM SERUM 3.2 MEQ/L (3.5-5.1); SODIUM LEVEL 141 MEQ/L (136-145); TROPONIN I 0.06 NG/ML (< 0.10)
[2019-05-18] VITALS (17 sets, daily range): BP systolic 110–123; BP diastolic 48–70; O2SAT 84–94
[2019-05-18 00:39] LABS: HEMATOCRIT 25.3 % (36.0-47.0); MEAN CORPUSCULAR HEMOGLOBIN 27.8 pg (27.0-33.0); MEAN CORPUSCULAR HGB CONC 31.6 g/dl (32.0-36.5); MEAN CORPUSCULAR VOLUME 87.8 fl (80.0-96.0); PLATELET COUNT, AUTOMATED 122 10^3/uL (150-450); RED BLOOD COUNT 2.88 10^6/uL (4.00-5.40); WHITE BLOOD COUNT 15.8 10^3/uL (4.0-10.0)
[2019-05-18 01:02] LABS: MAGNESIUM LEVEL 1.9 MG/DL (1.8-2.4); THYROID STIMULATING HORMONE 1.16 uIU/ML (0.358-3.740)
[2019-05-18] MEDS: IPRATROPIUM 0.5MG/ALBUTEROL 2.5MG INH SOL UD 3ML (DUONEB)(J7620) NEB SCH ×4 (01:27→20:17)
[2019-05-18 03:20] LABS: ABG BASE EXCESS 3.3 (-2.0-2.0); ABG HCO3 25.5 MEQ/L (22.0-26.0); ABG O2 SATURATION 89.6 % (95.0-99.0); ABG PARTIAL PRESSURE CO2 29.2 mmHg (35.0-45.0); ABG PARTIAL PRESSURE O2 55.7 mmHg (75.0-100.0); ABG STANDARD HCO3 27.3 MEQ/L (22.0-26.0); ABG TOTAL CO2 26.4 MEQ/L (23.0-31.0); ABG pH (ARTERIAL) 7.559 UNITS (7.350-7.450)
[2019-05-18] MEDS: ACETAMINOPHEN TAB 650MG DOSE (2X325MG) PO PRN (03:38)
[2019-05-18] MEDS: methylPREDNISolone INJ 40 MG/1 ML VIAL (J2920) IV SCH ×3 (05:12→21:51)
[2019-05-18] MEDS: PIPERACILLIN/TAZOBACTAM SOD 3.375 GM in D5W MINI-BAG PLUS 50 ML IV SCH ×4 (05:12→23:36)
[2019-05-18] MEDS: SLF 3 ML SYR IV SCH ×3 (05:12→21:51)
--- NOTE | 2019-05-18 05:34 | ECHO ---
DATE OF STUDY: 05/17/2019 DATE OF : 1945 AGE: 73 REFERRING PROVIDER: Dr. Kyle Garcia REASON FOR STUDY: Congestive heart failure. 2-D MEASUREMENTS: IVS: 1.0 cm LV: 3.8 cm LVPW: 1.0 cm LA: 3.0 cm Aorta: 2.2 cm IVC: 1.5 cm DOPPLER MEASUREMENTS: Peak velocity across the aortic valve: 1.7 m/s Peak gradient across the aortic valve: 11 mmHg Mitral E: 1.2 Mitral A: 1.0 Ratio: 1.2 Maximum tricuspid valve velocity: 2.9 m/s 2-D COMMENTS: 1. Normal left ventricular size, wall thickness, and normal global left ventricular systolic ejection fraction. The estimated left ventricular systolic ejection fraction is 60-65%. 2. Normal left atrium. Normal right atrium and right ventricle. The right ventricular free wall appeared to be hypertrophic in nature. 3. The atrial septum appeared to be normal without evidence of defect or shunt. 4. Normal aortic root. 5. Trace to small pericardial effusion noted, no evidence of cardiac tamponade. Pleural effusion also noted. 6. Mildly calcified aortic valve with normal leaflet excursion. Mildly calcified mitral annulus with normal anterior mitral valve leaflet motion. Normal tricuspid valve. The pulmonic valve and proximal pulmonary artery branches were not well visualized. 7. The inferior vena cava was normal in size, central venous pressure is most likely normal. DOPPLER: Detects trace mitral regurgitation and mild tricuspid regurgitation. The calculated pulmonary artery systolic pressure varies between 40-50 mmHg. Abnormal relaxation pattern was noted across the mitral valve annulus consistent with features of grade 2 left ventricular diastolic dysfunction, left ventricular end-diastolic pressure might be elevated. IMPRESSION: 1. Normal global left ventricular systolic function. There are some features of left ventricular diastolic dysfunction, grade 2. 2. Aortic valve sclerosis with trivial aortic stenosis, but no aortic radiation. 3. Mitral annulus calcification with trace mitral regurgitation. 4. Mild tricuspid regurgitation with probably moderate pulmonary hypertension. 5. Trace to small pericardial effusion noted, no evidence of cardiac tamponade. Pleural effusion also was noted. 6. The pulmonic valve and proximal pulmonary artery branches were not well visualized. 7. The inferior vena cava was normal in size, central venous pressure might be normal.
[2019-05-18 06:09] LABS: HEMATOCRIT 23.6 % (36.0-47.0); HEMOGLOBIN 7.4 g/dl (12.0-15.5); MEAN CORPUSCULAR HEMOGLOBIN 27.2 pg (27.0-33.0); MEAN CORPUSCULAR HGB CONC 31.4 g/dl (32.0-36.5); MEAN CORPUSCULAR VOLUME 86.8 fl (80.0-96.0); PLATELET COUNT, AUTOMATED 115 10^3/uL (150-450); RED BLOOD COUNT 2.72 10^6/uL (4.00-5.40); WHITE BLOOD COUNT 13.9 10^3/uL (4.0-10.0)
[2019-05-18 06:31] LABS: ALBUMIN 1.5 GM/DL (3.2-5.2); ALT/SGPT 249 U/L (12-78); BILIRUBIN,TOTAL 0.4 MG/DL (0.2-1.0); BLOOD UREA NITROGEN 22 MG/DL (7-18); CALCIUM LEVEL 7.1 MG/DL (8.8-10.2); CARBON DIOXIDE LEVEL 28 MEQ/L (21-32); CHLORIDE LEVEL 108 MEQ/L (98-107); CREATININE FOR GFR 0.71 MG/DL (0.55-1.30); GLOMERULAR FILTRATION RATE > 60.0 (>39); GLUCOSE, FASTING 208 MG/DL (70-100); POTASSIUM SERUM 4.2 MEQ/L (3.5-5.1); SODIUM LEVEL 144 MEQ/L (136-145); TOTAL PROTEIN 4.4 GM/DL (6.4-8.2)
[2019-05-18] MEDS: FLUoxetine 20 MG CAP PO SCH (09:10)
[2019-05-18] MEDS: PRAVASTATIN 20 MG TAB PO SCH (09:10)
[2019-05-18] MEDS: ZIPRASIDONE 20MG CAPSULE (GEODON) PO SCH ×2 (09:10→21:50)
[2019-05-18] MEDS: DOCUSATE SODIUM 100 MG CAP PO SCH ×2 (09:10→21:50)
--- NOTE | 2019-05-18 10:35 | IPNPDOC ---
Subjective Date Seen The patient was seen on 05/18/19. Subjective Chief Complaint/HPI Patient sitting by the age of bed, still not feeling good with shortness of breath General: Denies: ROS Unobtainable, Chills, Night Sweats, Fatigue, Malaise, Normal Appetite, Other Symptoms Constitutional: Denies: Chills, Fever, Malaise, Night Sweats, Weakness, Fatigue, Weight Loss, Lethargy, Other Eyes: Denies: Pain, Vision change, Conjunctivae inflammation, Eyelid inflammat ion, Redness, Other ENT: Denies: Head Aches, Ear Pain, Dysphagia, Sinus Congestion, Post Nasal Drip, Sore Throat, Epistaxis, Other Symptoms Pulmonary: Reports: Dyspnea Cardiovascular: Denies: Chest Pain, Palpitations, Orthopnea, Paroxysmal Noc. Dyspnea, Edema, Lt Headedness, Other Symptoms Gastrointestinal: Denies: Nausea, Vomiting, Abdominal Pain, Diarrhea, Constipation, Melena, Hematochezia, Other Symptoms Musculoskeletal: Denies: Neck Pain, Back Pain, Shoulder Pain, Arm Pain, Hand P ain, Leg Pain, Foot Pain, Joint Pain, Muscle Pain, Spasms, Other Symptoms Neurological: Denies: Weakness, Numbness, Incoordination, Change in speech, Confusion, Seizures, Other Symptoms Objective Physical Examination General Exam: Positive: Alert, Cooperative Eye Exam: Positive: PERRLA, Conjunctiva & lids normal ENT Exam: Positive: Atraumatic Chest Exam: Positive: Other (diminished breath sounds bilaterally with crackles and rhonchi bilaterally) Heart Exam: Positive: Rate Normal, Normal S1, Normal S2 Abdomen Exam: Positive: Normal bowel sounds, Soft Extremity Exam: Positive: Other (bipedal edema) Skin Exam: Positive: Nl turgor and temperature Neuro Exam: Positive: Strength at 5/5 X4 ext, Sensation Intact Psych Exam: Positive: Mood NL Assessment /Plan Problems (1) Acute respiratory failure with hypoxemia Status: Acute Problem Text: Acute respiratory failure with hypoxia secondary to extensive right upper mid and lower lobe pneumonia And also has a extensive history of smoking with emphysematous changes on chest x-ray Patient has been started on IV antibiotics, oxygen supplement and nebulizer treatments Patient seems to be responding to verbal therapy very well and will continue the same. (2) Pneumonia Status: Acute Problem Text: Patient has extensive right upper, middle and lower lobe infiltrates Will continue IV antibiotics, Zosyn and orders Nasal PCR for MRSA has been requested. If positive, will add vancomycin Patient seems to be responding to IV Zosyn with decreasing WBC count Sputum cultures pending Continue present care (3) COPD (chronic obstructive pulmonary disease) Status: Acute Problem Text: Continue DuoNeb as per orders Continue IV Solu-Medrol 40 every 8 hours Oxygen support (4) Acute on chronic diastolic (congestive) heart failure Status: Acute Problem Text: Echocardiogram done shows: Normal left ventricular function but grade 2 diastolic failure Patient received 1 dose of Lasix 40 mg IV 1 with good response and decreased bipedal edema Will restart patient's oral Lasix Monitor I&O's (5) History of pulmonary embolism Status: Chronic Problem Text: Continue Xarelto as per orders (6) Anemia Status: Chronic Problem Text: An anemia of unknown etiology Will start iron deficiency workup Stool occult blood has been ordered Repeat CBC in a.m. , We'll transfuse if hemoglobin less than 7 Plan/VTE VTE Prophylaxis Ordered?: Yes VS, I&O, 24H, [facility] Vital Signs/I&O Vital Signs Date Time Temp Pulse Resp B/P (MAP) Pulse Ox O2 Delivery O2 Flow Rate FiO2 05/18/19 08:00 100.2 97 22 112/70 (84) 90 High Flow Cannula 8.0 05/17/19 16:47 50 I&O- Last 24 Hours up to 6 AM 05/18/19 06:00 Intake Total 650 ml Output Total 2200 ml Balance -1550 ml Laboratory Data 24H LABS Laboratory Tests 2 05/17/19 17:28: 05/17/19 17:41: Nucleated Red Blood Cells % (auto) 0.2H, Prothrombin Time 14.5H, Prothromb Time International Ratio 1.16, Anion Gap 8, Glomerular Filtration Rate > 60.0, Calcium Level 7.5L, Magnesium Level 2.1, Total Bilirubin 0.3, Aspartate Amino Transf (AST/SGOT) 13, Alanine Aminotransferase (ALT/SGPT) 27, Alkaline Phosphatase 62, Troponin I 0.05, JX-Cjh-A-Type Natriuretic Peptide 2012H, Total Protein 4.5L, Albumin 1.8L, Albumin/Globulin Ratio 0.67L 05/17/19 18:14: Blood Gas Bicarbonate Standard 28.7H, Arterial Blood pH 7.544H, Arterial Blood Partial Pressure CO2 32.6L, Arterial Blood Partial Pressure O2 48.3*L, Arterial Blood Total CO2 28.5, Arterial Blood HCO3 27.5H, Arterial Blood Base Excess 4.9H, Arterial Blood Oxygen Saturation 86.7L 05/17/19 18:24: Urine Color YELLOW, Urine Appearance CLEAR, Urine pH 5.0, Urine Specific [place] 1.009, Urine Protein 1+H, Urine Glucose (UA) 1+H, Urine Ketones NEGATIVE, Urine Blood 2+H, Urine Nitrite NEGATIVE, Urine Bilirubin NEGATIVE, Urine Urobilinogen 0.2, Urine Leukocyte Esterase NEGATIVE, Urine WBC (Auto) 1, Urine RBC (Auto) 6H, Urine Hyaline Casts (Auto) 0, Urine Bacteria (Auto) NEGATIVE, Urine Squamous Epithelial Cells 0, Urine Mucus (Auto) SMALL, Urine Sperm (Auto) 05/17/19 22:40: Anion Gap 10, Glomerular Filtration Rate > 60.0, Calcium Level 7.3L, Troponin I 0.06 05/17/19 22:59: Blood Gas Bicarbonate Standard 27.5H, Arterial Blood pH 7.553H, Arterial Blood Partial Pressure CO2 29.9L, Arterial Blood Partial Pressure O2 50.6L, Arterial Blood Total CO2 26.7, Arterial Blood HCO3 25.8, Arterial Blood Base Excess 3.6H, Arterial Blood Oxygen Saturation 87.1L 05/18/19 00:09: Nucleated Red Blood Cells % (auto) 0.1H, Magnesium Level 1.9, Thyroid Stimulating Hormone (TSH) 1.160 05/18/19 03:00: Blood Gas Bicarbonate Standard 27.3H, Arterial Blood pH 7.559H, Arterial Blood Partial Pressure CO2 29.2L, Arterial Blood Partial Pressure O2 55.7L, Arterial Blood Total CO2 26.4, Arterial Blood HCO3 25.5, Arterial Blood Base Excess 3.3H, Arterial Blood Oxygen Saturation 89.6L 05/18/19 05:38: Nucleated Red Blood Cells % (auto) 0.1H, Anion Gap 8, Glomerular Filtration Rate > 60.0, Calcium Level 7.1L, Magnesium Level 2.0, Total Bilirubin 0.4, Aspartate Amino Transf (AST/SGOT) 183H, Alanine Aminotransferase (ALT/SGPT) 249H, Alkaline Phosphatase 62, Total Protein 4.4L, Albumin 1.5L, Albumin/Globulin Ratio 0.52L 05/18/19 07:47: Methicillin-Resist S.aureus DNA PCR NOT DETECTED CBC/BMP Laboratory Tests 05/17/19 17:41 05/17/19 22:40 05/18/19 00:09 05/18/19 05:38 DEIDRA STEVENSON MD May 18, 2019 10:35
[2019-05-18] MEDS: FUROSEMIDE 40 MG TAB PO SCH (12:53)
--- NOTE | 2019-05-18 16:55 | ECGEPIP ---
[facility] Test Date: 2019-05-18 Pat Name: JUVENCIO MCCLURE Department: Room: [place] [address] Gender: Female Building Coordinator: GALO : 1945 Requested By: DIYA DAVID Order Number: [id number] Reading MD: Babak Long Measurements Intervals [place] Rate: 99 P: 94 SC: 150 QRS: 37 QRSD: 110 T: 32 QT: 414 QTc: 533 Interpretive Statements SINUS RHYTHM WITH FREQUENT SUPRAVENTRICULAR PREMATURE COMPLEXES NONSPECIFIC ST & T-WAVE ABNORMALITY ABNORMAL RHYTHM ECG Electronically Signed on 05-18-2019 16:55:04 EDT by Babak Long
[2019-05-18] MEDS: RIVAROXABAN 15 MG TAB (XARELTO) PO SCH (18:19)
[2019-05-18] MEDS: traZODone 100 MG TAB PO SCH (21:50)
[2019-05-18] MEDS ORDERED: FUROSEMIDE 40 MG/4 ML VIAL (J1940) IV ONE (22:45)
[2019-05-18 22:49] LABS: HEMATOCRIT 25.2 % (36.0-47.0)
[2019-05-19] VITALS (10 sets, daily range): BP systolic 98–125; BP diastolic 30–59; O2SAT 85–92
[2019-05-19 00:08] LABS: VENOUS BASE EXCESS 4.8 (-2.0-2.0); VENOUS HCO3 25.9 MEQ/L (23.0-27.0); VENOUS O2 SATURATION 99.3 % (60.0-80.0); VENOUS PARTIAL PRESSURE CO2 26.7 mmHg (38.0-50.0); VENOUS PH 7.605 UNITS (7.330-7.430); VENOUS STANDARD HCO3 28.8 MEQ/L; VENOUS TOTAL CO2 26.7 MEQ/L (24.0-28.0)
[2019-05-19 01:44] LABS: VENOUS BASE EXCESS 6.3 (-2.0-2.0); VENOUS HCO3 29.4 MEQ/L (23.0-27.0); VENOUS O2 SATURATION 86.6 % (60.0-80.0); VENOUS PARTIAL PRESSURE CO2 36.5 mmHg (38.0-50.0); VENOUS PARTIAL PRESSURE O2 52.7 mmHg (30.0-50.0); VENOUS PH 7.524 UNITS (7.330-7.430); VENOUS TOTAL CO2 30.5 MEQ/L (24.0-28.0)
[2019-05-19] MEDS: IPRATROPIUM 0.5MG/ALBUTEROL 2.5MG INH SOL UD 3ML (DUONEB)(J7620) NEB SCH ×3 (01:45→13:10)
[2019-05-19] MEDS: ACETAMINOPHEN TAB 650MG DOSE (2X325MG) PO PRN (05:42)
[2019-05-19] MEDS: methylPREDNISolone INJ 40 MG/1 ML VIAL (J2920) IV SCH ×2 (05:42→14:49)
[2019-05-19] MEDS: SLF 3 ML SYR IV SCH ×2 (05:42→14:49)
[2019-05-19] MEDS: PIPERACILLIN/TAZOBACTAM SOD 3.375 GM in D5W MINI-BAG PLUS 50 ML IV SCH ×3 (05:42→18:00)
[2019-05-19 05:53] LABS: HEMATOCRIT 26.7 % (36.0-47.0); HEMOGLOBIN 8.4 g/dl (12.0-15.5); MEAN CORPUSCULAR HEMOGLOBIN 27.5 pg (27.0-33.0); MEAN CORPUSCULAR HGB CONC 31.5 g/dl (32.0-36.5); MEAN CORPUSCULAR VOLUME 87.5 fl (80.0-96.0); PLATELET COUNT, AUTOMATED 108 10^3/uL (150-450); RED BLOOD COUNT 3.05 10^6/uL (4.00-5.40); WHITE BLOOD COUNT 5.2 10^3/uL (4.0-10.0)
[2019-05-19 06:28] LABS: ALBUMIN 1.4 GM/DL (3.2-5.2); ALT/SGPT 519 U/L (12-78); BILIRUBIN,TOTAL 0.4 MG/DL (0.2-1.0); BLOOD UREA NITROGEN 25 MG/DL (7-18); CARBON DIOXIDE LEVEL 29 MEQ/L (21-32); CHLORIDE LEVEL 109 MEQ/L (98-107); CREATININE FOR GFR 0.96 MG/DL (0.55-1.30); FERRITIN 819 NG/ML (8-252); GLOMERULAR FILTRATION RATE > 60.0 (>39); GLUCOSE, FASTING 308 MG/DL (70-100); IRON (FE) 20 UG/DL (50-170); PERCENT SATURATION 7.3 % (13.2-45.0); POTASSIUM SERUM 3.3 MEQ/L (3.5-5.1); SODIUM LEVEL 147 MEQ/L (136-145); TOTAL IRON BINDING CAPACITY 273 UG/DL (250-450); TOTAL PROTEIN 5.2 GM/DL (6.4-8.2)
[2019-05-19 06:40] LABS: VENOUS BASE EXCESS 7.8 (-2.0-2.0); VENOUS HCO3 29.6 MEQ/L (23.0-27.0); VENOUS O2 SATURATION 99.7 % (60.0-80.0); VENOUS PARTIAL PRESSURE O2 235.8 mmHg (30.0-50.0); VENOUS PH 7.598 UNITS (7.330-7.430); VENOUS STANDARD HCO3 31.6 MEQ/L; VENOUS TOTAL CO2 30.6 MEQ/L (24.0-28.0)
[2019-05-19] MEDS ORDERED: POTASSIUM CHLORIDE 10 MEQ SR TABLET PO ONE (07:45)
[2019-05-19] MEDS ORDERED: FERROUS SULFATE 325MG TAB PO SCH (09:00)
[2019-05-19] MEDS: PRAVASTATIN 20 MG TAB PO SCH (09:17)
[2019-05-19] MEDS: ZIPRASIDONE 20MG CAPSULE (GEODON) PO SCH (09:17)
[2019-05-19] MEDS: FUROSEMIDE 40 MG TAB PO SCH (09:18)
[2019-05-19] MEDS: FLUoxetine 20 MG CAP PO SCH (09:18)
[2019-05-19] MEDS: DOCUSATE SODIUM 100 MG CAP PO SCH (09:18)
--- NOTE | 2019-05-19 10:40 | IPNPDOC ---
Subjective Date Seen The patient was seen on 05/19/19. Subjective Chief Complaint/HPI Patient is somewhat lethargic today. Offers no complaints of shortness of breath of which has improved General: Reports: Fatigue, Other Symptoms (lethargic) Constitutional: Denies: Chills, Fever, Malaise, Night Sweats, Weakness, Fatigue, Weight Loss, Lethargy, Other Skin: Denies: Rash, Lesions, Jaundice, Bruising, Itching, Dry, Breakdown, Nail Changes, Other Pulmonary: Denies: Dyspnea, Cough, Pleuritic Chest Pain, Other Symptoms Cardiovascular: Denies: Chest Pain, Palpitations, Orthopnea, Paroxysmal Noc. Dyspnea, Edema, Lt Headedness, Other Symptoms Gastrointestinal: Denies: Nausea, Vomiting, Abdominal Pain, Diarrhea, Constipation, Melena, Hematochezia, Other Symptoms Musculoskeletal: Denies: Neck Pain, Back Pain, Shoulder Pain, Arm Pain, Hand Pain, Leg Pain, Foot Pain, Joint Pain, Muscle Pain, Spasms, Other Symptoms Neurological: Denies: Weakness, Numbness, Incoordination, Change in speech, Confusion, Seizures, Other Symptoms Objective Physical Examination General Exam: Positive: Alert, Cooperative Neck Exam: Positive: Supple Chest Exam: Positive: Other (, slightly improved breath sounds bilaterally but is still has wheezing and rhonchi) Heart Exam: Positive: Rate Normal, Normal S1, Normal S2 Abdomen Exam: Positive: Normal bowel sounds, Soft Extremity Exam: Positive: Other (bipedal edema) Skin Exam: Positive: Nl turgor and temperature Neuro Exam: Positive: Strength at 5/5 X4 ext, Sensation Intact Assessment /Plan Problems (1) Acute respiratory failure with hypoxemia Status: Acute Problem Text: Acute respiratory failure with hypoxia secondary to extensive right upper mid and lower lobe pneumonia and possible left lower lobe pneumonia And also has a extensive history of smoking with emphysematous changes on chest x-ray Patient has been started just IV Zosyn. DuoNeb treatments and oxygen supplement Even though Patient's WBC count is 5.2 today, but she still requires increased oxygen and repeat chest x-ray consistent with worsening pneumonia. Patient is clinically stable with current therapy, but will discuss DNR, DNI with her considering worsening of pneumonia on chest x-ray. I IV. Head and extension discussion with patient regarding healthcare proxy DNR and DNI. All risks and benefits were explained. She agreed with DNR, but she wishes to be intubated if needed. DNR order has been placed in the chart Continue present care and will change according to patient's clinical status will monitor her closely. (2) Pneumonia Status: Acute Problem Text: Patient has extensive right upper, middle and lower lobe infiltrates Will continue IV antibiotics, Zosyn and orders PCR for MRSA was negative. No need for vancomycin Patient seems to be responding to IV Zosyn with decreasing WBC count Sputum cultures still pending CBC in a.m. Continue present care (3) COPD (chronic obstructive pulmonary disease) Status: Acute Problem Text: Continue DuoNeb as per orders Continue IV Solu-Medrol 40 every 8 hours Oxygen support (4) Acute on chronic diastolic (congestive) heart failure Status: Acute Problem Text: Echocardiogram done shows: Normal left ventricular function but grade 2 diastolic failure Patient received 1 dose of Lasix 40 mg IV 1 with good response and decreased bipedal edema Will monitor patient clinically As patient looks somewhat volume depleted and has no bipedal edema. Will DC by mouth Lasix at the present time will restart if needed (5) History of pulmonary embolism Status: Chronic Problem Text: Continue Xarelto as per orders (6) Anemia Status: Chronic Problem Text: Most likely etiology of her anemia is iron deficiency Iron supplementation has been started Her hemoglobin is 8.4 today and will continue monitoring (7) Protein malnutrition Status: Chronic Problem Text: Patient has low albumin and low protein levels And clinically her exam is consistent with protein malnutrition Dietary consult appreciated and supplements have been started M encourage oral feeding as much as possible (8) Increased liver enzymes Status: Acute Problem Text: Most likely secondary to worsening infection Will monitor LFTs daily We will also request. Acute hepatitis profile today Plan/VTE VTE Prophylaxis Ordered?: Yes VS, I&O, 24H, Fishbone Vital Signs/I&O Vital Signs Date Time Temp Pulse Resp B/P (MAP) Pulse Ox O2 Delivery O2 Flow Rate FiO2 05/19/19 08:00 99.0 97 20 98/50 (66) 83 HVNI-Vapotherm 30.0 85 I&O- Last 24 Hours up to 6 AM 05/19/19 05:59 Intake Total 1000 ml Output Total 2665 ml Balance -1665 ml Laboratory Data 24H LABS Laboratory Tests 2 05/19/19 00:00: Blood Gas Bicarbonate Standard 28.8, Venous Blood pH 7.605*H, Venous Blood Partial Pressure CO2 26.7L, Venous Blood Partial Pressure O2 194.0H, Venous Blood Total Carbon Dioxide 26.7, Venous Blood HCO3 25.9, Venous Blood Oxygen Saturation 99.3H, Venous Blood Base Excess 4.8H 05/19/19 01:34: Blood Gas Bicarbonate Standard 30.0, Venous Blood pH 7.524H, Venous Blood Partial Pressure CO2 36.5L, Venous Blood Partial Pressure O2 52.7H, Venous Blood Total Carbon Dioxide 30.5H, Venous Blood HCO3 29.4H, Venous Blood Oxygen Saturation 86.6H, Venous Blood Base Excess 6.3H 05/19/19 05:12: Nucleated Red Blood Cells % (auto) 3.8H, Anion Gap 9, Glomerular Filtration Rate > 60.0, Calcium Level 8.0L, Iron Level 20L, Total Iron Binding Capacity 273, T ransferrin % Saturation 7.3L, Ferritin 819H, Total Bilirubin 0.4, Aspartate Amino Transf (AST/SGOT) 325H, Alanine Aminotransferase (ALT/SGPT) 519H, Alkaline Phosphatase 70, Total Protein 5.2L, Albumin 1.4L, Albumin/Globulin Ratio 0.37L 05/19/19 06:34: Blood Gas Bicarbonate Standard 31.6, Venous Blood pH 7.598H, Venous Blood Partial Pressure CO2 31.0L, Venous Blood Partial Pressure O2 235.8H, Venous Blood Total Carbon Dioxide 30.6H, Venous Blood HCO3 29.6H, Venous Blood Oxygen Saturation 99.7H, Venous Blood Base Excess 7.8H CBC/BMP Laboratory Tests 05/18/19 22:43 05/19/19 05:12 DEIDRA STEVENSON MD May 19, 2019 10:40
--- NOTE | 2019-05-19 12:25 | REP ---
Clinical: Pneumonia. Comparison: 05/17/2019. Findings: Diffuse chronic interstitial changes are appreciated. Moderate right lower lobe infiltrate with moderate effusion is appreciated along with mild left basilar infiltrate and small pleural reaction. No pneumothorax. Cardiac silhouette is normal. Skeletal structures stable. Impression: Increasing bilateral infiltrates (right greater than left) and moderate right pleural effusion. Electronically Signed by Silviano Albert MD 05/19/2019 12:18 P
--- NOTE | 2019-05-19 17:36 | DS.PDOC ---
Discharge Summary General Date of Admission May 17, 2019 at 16:48 Date of Discharge 05/19/19 Discharge Summary PROCEDURES PERFORMED DURING STAY: None. ADMITTING DIAGNOSES: 1. Extensive pneumonia. DISCHARGE DIAGNOSES: 1. Acute respiratory failure most likely secondary to aspiration ,Extensive pneumonia. COMPLICATIONS/CHIEF COMPLAINT: Pneumonia. HISTORY OF PRESENT ILLNESS: 73 years old white female with past medical history of hypertension, depression, anxiety, bipolar disorder, GERD, HLD, history of PE status post IVC filter on Xarelto was admitted to [facility] with the diagnosis of pneumonia and COPD since 05/14/2019. She was treated with Zithromax and there for IV antibiotics for pneumonia, but today was transferred to [facility] for advanced care for her COPD and pneumonia. Patient is a poor historian. Offers no complaints is not sure why she is here. History was obtained from the accepting physician and from medical records brought from [facility] with patient.. HOSPITAL COURSE: 73 years old white female with past medical history of multiple medical problems including hypertension, depression, anxiety, bipolar disorder, GERD, hyperlipidemia, PE, status post IVC filter. Recurrent pneumonia was admitted to [facility] with diagnosis of community-acquired pneumonia. She stayed there almost 2 weeks, and then she was discharged home and after 2 days she had returned back to the [facility] with worsening pneumonia. She was admitted to [facility] and subsequently after 2 days was transferred to [facility] for further care' Patient was started on IV antibiotics, oxygen, nebulizer treatments, IV Solu- Medrol and all her home medications. Her WBC count had improved but overall clinical status remained status quo. Today, I had extensive discussion with patient regarding DNR and DNI and she wished to sign DNR, but not DNI. Afterwards her family came to see her and I had a meeting with the family and medical management and poor prognosis were explained to them. Afterwards this evening a rapid assessment team was called as patient became unresponsive. On examination, patient was unresponsive with agonal breathing , copious amount of secretions were suctioned from her mouth, as she was not DNI. She was intubated with the help of anesthesia. She was started on IV fluids. She was hand bagged to keep the oxygenation high and attempt was made to place the femoral line without success. Subsequently patient at 5:17 PM today, multiple attempts were made to inform the family, but so far unable to reach them. Will continue trying till the are aware d about their loved ones expiration. DISCHARGE MEDICATIONS: Please see below. ALLERGIES: Please see below. PHYSICAL EXAMINATION ON DISCHARGE: VITAL SIGNS: Please see below. Patient todayat 05:17pm today GENERAL: HEENT: NECK: CARDIOVASCULAR EXAMINATION: RESPIRATORY EXAMINATION: ABDOMINAL EXAMINATION: EXTREMITIES: SKIN: NEUROLOGICAL EXAMINATION: PSYCHIATRIC EXAMINATION: LABORATORY DATA: Please see below. IMAGING: [CT chest:Extensive pneumonia in the dependent portions of the right lung, upper, mid, and lower lobes. Question aspiration pneumonia. Tiny right pleural effusion. Question early infiltrate in the left lower lobe with peribronchovascular nodularity. Calcific pleural plaquing. PROGNOSIS: ACTIVITY: Not applicable DIET: Not applicable DISCHARGE PLAN: DISPOSITION: . DISCHARGE INSTRUCTIONS: 1. Not applicable. ITEMS TO FOLLOWUP ON ON OUTPATIENT: 1. Heart applicable. DISCHARGE CONDITION: . TIME SPENT ON DISCHARGE: 30 min Vital Signs/I&Os Vital Signs Date Time Temp Pulse Resp B/P (MAP) Pulse Ox O2 Delivery O2 Flow Rate FiO2 05/19/19 16:00 98.8 88 24 100/30 (53) 83 HVNI-Vapotherm 30.0 85 I&O- Last 24 Hours up to 6 AM 05/19/19 06:00 Intake Total 1000 ml Output Total 2665 ml Balance -1665 ml Laboratory Data Labs 24H Laboratory Tests 2 05/19/19 00:00: Blood Gas Bicarbonate Standard 28.8, Venous Blood pH 7.605*H, Venous Blood Partial Pressure CO2 26.7L, Venous Blood Partial Pressure O2 194.0H, Venous Blood Total Carbon Dioxide 26.7, Venous Blood HCO3 25.9, Venous Blood Oxygen Saturation 99.3H, Venous Blood Base Excess 4.8H 05/19/19 01:34: Blood Gas Bicarbonate Standard 30.0, Venous Blood pH 7.524H, Venous Blood Partial Pressure CO2 36.5L, Venous Blood Partial Pressure O2 52.7H, Venous Blood Total Carbon Dioxide 30.5H, Venous Blood HCO3 29.4H, Venous Blood Oxygen Saturation 86.6H, Venous Blood Base Excess 6.3H 05/19/19 05:12: Nucleated Red Blood Cells % (auto) 3.8H, Anion Gap 9, Glomerular Filtration Rate > 60.0, Calcium Level 8.0L, Iron Level 20L, Total Iron Binding Capacity 273, Transferrin % Saturation 7.3L, Ferritin 819H, Total Bilirubin 0.4, Aspartate Amino Transf (AST/SGOT) 325H, Alanine Aminotransferase (ALT/SGPT) 519H, Alkaline Phosphatase 70, Total Protein 5.2L, Albumin 1.4L, Albumin/Globulin Ratio 0.37L 05/19/19 06:34: Blood Gas Bicarbonate Standard 31.6, Venous Blood pH 7.598H, Venous Blood Partial Pressure CO2 31.0L, Venous Blood Partial Pressure O2 235.8H, Venous Blood Total Carbon Dioxide 30.6H, Venous Blood HCO3 29.6H, Venous Blood Oxygen Saturation 99.7H, Venous Blood Base Excess 7.8H CBC/BMP Laboratory Tests 05/18/19 22:43 05/19/19 05:12 Discharge Medications Scheduled Diltiazem Hcl (Diltiazem 24Hr ER) 180 Mg Cap.er.24h, 180 MG PO DAILY, (Reported) Fluoxetine HCl (Prozac) 20 Mg Cap, 20 MG PO DAILY, (Reported) Furosemide (Furosemide) 40 Mg Tablet, 40 MG PO DAILY, (Reported) Pantoprazole Sodium (Pantoprazole Sodium) 40 Mg Tab, 40 MG PO DAILY, (Reported) Pravastatin Sodium (Pravastatin Sodium) 40 Mg Tablet, 40 MG PO QHS, (Reported) Rivaroxaban (Xarelto) 15 Mg Tablet, 15 MG PO QPM, (Reported) Ziprasidone HCl (Geodon) 40 Mg Capsule, 40 MG PO BID, (Reported) Scheduled PRN Acetaminophen (Acetaminophen) 325 Mg Tablet, 650 MG PO Q6H PRN for PAIN, (Reported) Albuterol Sulf (Albuterol Sulfate) 2.5 Mg/3 Ml Vial.neb, 1 VIAL INH Q4H PRN for WHEEZING, (Reported) Miscellaneous Medications [Pt Notes] , (Reported) PT IS A POOR HISTORIAN AND CAN'T REMEMEBER ANYTHING THAT SHE IS ON. MED REC BASED ON EXTERNAL MED HISTORY. Allergies Coded Allergies: No Known Allergies (Verified , 12/01/04) DEIDRA STEVENSON MD May 19, 2019 17:36
[2019-05-19] MEDS: RIVAROXABAN 15 MG TAB (XARELTO) PO SCH (18:00)
== END 2019-05-19 21:39 | disposition expired | DRG 193 ==
LOC: M PCU 15:48 → UNDOADMIN 15:48 → M PCU 16:48
PROVIDERS: ADMIT Internal Medicine; ATTEND Internal Medicine
DX: J18.9 Pneumonia, unspecified organism (principal); J96.01 Acute respiratory failure with hypoxia; I50.33 Acute on chronic diastolic (congestive) heart failure; J44.1 Chronic obstructive pulmonary disease with (acute) exacerbation; E46 Unspecified protein-calorie malnutrition; I11.0 Hypertensive heart disease with heart failure; F41.9 Anxiety disorder, unspecified; K21.9 Gastro-esophageal reflux disease without esophagitis; F31.9 Bipolar disorder, unspecified; Z79.01 Long term (current) use of anticoagulants; Z66 Do not resuscitate; E78.5 Hyperlipidemia, unspecified; Z87.891 Personal history of nicotine dependence; Z86.711 Personal history of pulmonary embolism; D64.9 Anemia, unspecified